=== PATIENT | male | born 1970 | race Caucasian/White ===

== ENCOUNTER → 2018-08-25 08:37 | Outpatient (CLI) | payer BC, SELFPAY ==
[2018-08-25 09:40] LABS: Add Manual Diff / Slide Review NO; Basophils Absolute Auto 100 /uL (0-100); Basophils Percent Auto 1.6 % (0-2); Eosinophils Absolute Auto 300 /uL (0-450); Eosinophils Percent Auto 4.9 % (2-4); Hemoglobin 10.3 g/dL (13.5-17.5); Lymphocytes Absolute Auto 1700 /uL (1100-4500); Lymphocytes Percent Auto 29.1 % (25-40); Mean Corpuscular HGB Conc 30.3 % (30-36); Mean Corpuscular Hemoglobin 19.3 PG (26-34); Mean Corpuscular Volume 63.6 fL (80-100); Monocytes Absolute Auto 800 /uL (0-900); Monocytes Percent Auto 13.1 % (3-14); Neutrophils Absolute Auto 3100 /uL (1500-7000); Neutrophils Percent Auto 51.3 % (50-75); Platelet Count 313 X10^3/uL (150-400); Red Blood Cell Count 5.35 X10^6/uL (4.5-5.9); Red Cell Distribution Width 21.2 % (11.6-14.8); White Blood Cell Count 5.9 X10^3/uL (4.5-11.0)
[2018-08-25 10:01] LABS: Alanine Aminotransferase 80 IU/L (21-72); Albumin 4.7 g/dL (3.5-5.0); Albumin Globulin Ratio 1.5 (1.0-2.8); Alkaline Phosphatase 76 U/L (38-126); Aspartate Aminotransferase 79 IU/L (17-59); BUN Creatinine Ratio 12.5 (6-22); Bilirubin Total 0.5 mg/dL (0.2-1.3); Blood Urea Nitrogen 10 mg/dL (9-20); Calcium 9.2 mg/dL (8.4-10.2); Carbon Dioxide 23 mmol/L (22-32); Chloride 102 mmol/L (98-107); Cholesterol 236 mg/dL (140-199); Estimated Glomerular Filt Rate > 60.0 mL/min (>60); Globulin 3.1 g/dL (1.7-4.1); Glucose 102 mg/dL (70-100); HDL Cholesterol 59 mg/dL (40-60); HEMOLYSIS < 15 (0-50); LDL Cholesterol Calculated 159 mg/dL (<100); Potassium 4.1 mmol/L (3.4-5.1); Sodium 138 mmol/L (137-145); Total Protein 7.8 g/dL (6.3-8.2); Triglycerides 88 mg/dL (35-150); Uric Acid 7.7 mg/dL (3.5-8.5)
[2018-08-25 10:25] LABS: Ferritin 7.1 ng/mL (17.9-464)
[2018-08-25 10:39] LABS: HEMOLYSIS < 15 (0-50); Iron 22 ug/dL (49-181)
[2018-08-25 10:50] LABS: Percent Iron Saturation 4 % (20-50); Total Iron Binding Capacity 595 ug/dL (261-462); Transferrin 454 mg/dL (206-381)
[2018-08-25 10:52] LABS: Hypochromasia 3+
[2018-08-25 10:53] LABS: Anisocytosis 3+; Microcytosis 3+; Stomatocytes 1+
== END ==
PROVIDERS: PCP Physician Assistant; Visit Provider Physician Assistant
DX: Z00.00 Encounter for general adult medical examination without abnormal findings (principal); E78.5 Hyperlipidemia, unspecified; M25.50 Pain in unspecified joint; K21.9 Gastro-esophageal reflux disease without esophagitis; Z86.2 Personal history of diseases of the blood and blood-forming organs and certain disorders involving the immune mechanism; Z87.19 Personal history of other diseases of the digestive system
CPT/HCPCS: 36415; 80053; 80061; 82728; 83540; 83550; 84550; 85025

== ENCOUNTER → 2018-11-27 10:42 | Outpatient (CLI) | payer OTHER, SELFPAY ==
--- NOTE | 2018-11-27 | DI.US.S_ITS ---
PROCEDURE: US PERIPH VENOUS UP EXTREM LT INDICATIONS: LEFT UPPER EXTREMITY PAIN TECHNIQUE: Real-time imaging, as well as color and pulse Doppler interrogation, was performed of the left upper extremity deep veins from the inferior neck to the antecubital fossa. COMPARISON: None. FINDINGS: The internal jugular vein, visualized portions of the subclavian vein, axillary, and brachial veins are free of intraluminal thrombus. Where physically possible, the veins are normally compressible. Color and pulse Doppler demonstrate normal intraluminal flow, with expected phasicity and pulsatility. Additional scanning of the cephalic and basilic veins of the superficial system demonstrate normal compressibility, without thrombus. IMPRESSION: No deep vein thrombosis of the left upper extremity. Dictated by: Lexis Hobson M.D. on 11/27/2018 at 12:56 Approved by: Lexis Hobson M.D. on 11/27/2018 at 12:57
== END ==
PROVIDERS: Family Provider Physical Medicine & Rehabilitation; PCP Physician Assistant; Visit Provider Physical Medicine & Rehabilitation
DX: M79.602 Pain in left arm (principal)
CPT/HCPCS: 93971

== ENCOUNTER → 2019-01-08 08:43 | Outpatient (CLI) | payer BC, SELFPAY ==
[2019-01-08 09:26] LABS: Add Manual Diff / Slide Review NO; Basophils Absolute Auto 100 /uL (0-100); Basophils Percent Auto 0.9 % (0-2); Eosinophils Absolute Auto 200 /uL (0-450); Eosinophils Percent Auto 2.8 % (2-4); Hemoglobin 14.9 g/dL (13.5-17.5); Lymphocytes Absolute Auto 1400 /uL (1100-4500); Lymphocytes Percent Auto 18.6 % (25-40); Mean Corpuscular Hemoglobin 33.1 PG (26-34); Mean Corpuscular Volume 97.5 fL (80-100); Monocytes Absolute Auto 600 /uL (0-900); Monocytes Percent Auto 7.8 % (3-14); Neutrophils Absolute Auto 5100 /uL (1500-7000); Neutrophils Percent Auto 69.9 % (50-75); Platelet Count 236 X10^3/uL (150-400); Red Blood Cell Count 4.51 X10^6/uL (4.5-5.9); Red Cell Distribution Width 15.3 % (11.6-14.8); White Blood Cell Count 7.3 X10^3/uL (4.5-11.0)
[2019-01-08 09:42] LABS: Alanine Aminotransferase 68 IU/L (21-72); Aspartate Aminotransferase 62 IU/L (17-59); Cholesterol 275 mg/dL (140-199); HDL Cholesterol 82 mg/dL (40-60); LDL Cholesterol Calculated 174 mg/dL (<100); Triglycerides 95 mg/dL (35-150)
[2019-01-08 09:52] LABS: HEMOLYSIS < 15 (0-50); Iron 82 ug/dL (49-181)
[2019-01-08 10:03] LABS: Percent Iron Saturation 20 % (20-50); Total Iron Binding Capacity 408 ug/dL (261-462); Transferrin 348 mg/dL (206-381)
[2019-01-08 10:18] LABS: Ferritin 43.6 ng/mL (17.9-464)
== END ==
PROVIDERS: PCP Physician Assistant; Visit Provider Physician Assistant
DX: D50.9 Iron deficiency anemia, unspecified (principal); E78.5 Hyperlipidemia, unspecified; R74.8 Abnormal levels of other serum enzymes
CPT/HCPCS: 36415; 80061; 82728; 83540; 83550; 84450; 84460; 85025

== ENCOUNTER → 2019-12-23 08:41 | Outpatient (CLI) | payer BC, SELFPAY ==
[2019-12-23 10:21] LABS: Hematocrit 31.6 % (41-53); Hemoglobin 9.5 g/dL (13.5-17.5); Mean Corpuscular Volume 66.7 fL (80-100); Platelet Count 234 X10^3/uL (150-400); Red Blood Cell Count 4.74 X10^6/uL (4.5-5.9); Red Cell Distribution Width 19.1 % (11.6-14.8); White Blood Cell Count 7.6 X10^3/uL (4.5-11.0)
[2019-12-23 10:38] LABS: Neutrophils Absolute Manual 5092 /uL (3000-5900); Total Cells Counted 100
[2019-12-23 10:39] LABS: Anisocytosis 2+
[2019-12-23 10:46] LABS: HEMOLYSIS < 15 (0-50); Iron 31 ug/dL (49-181)
[2019-12-23 10:49] LABS: Alanine Aminotransferase 120 IU/L (<50); Albumin 4.8 g/dL (3.5-5.0); Albumin Globulin Ratio 1.6 (1.0-2.8); Alkaline Phosphatase 86 U/L (38-126); Aspartate Aminotransferase 169 IU/L (17-59); BUN Creatinine Ratio 16.4 (6-22); Bilirubin Total 0.9 mg/dL (0.2-1.3); Blood Urea Nitrogen 12 mg/dL (9-20); Calcium 9.7 mg/dL (8.4-10.2); Carbon Dioxide 23 mmol/L (22-32); Chloride 105 mmol/L (98-107); Cholesterol 236 mg/dL (140-199); Estimated Glomerular Filt Rate > 60.0 mL/min (>60); Glucose 101 mg/dL (70-100); HDL Cholesterol 61 mg/dL (40-60); HEMOLYSIS 17 (0-50); LDL Cholesterol Calculated 157 mg/dL (<100); Potassium 4.5 mmol/L (3.4-5.1); Sodium 138 mmol/L (137-145); Total Protein 7.8 g/dL (6.3-8.2); Triglycerides 90 mg/dL (35-150)
[2019-12-23 10:58] LABS: Percent Iron Saturation 6 % (20-50); Total Iron Binding Capacity 504 ug/dL (261-462); Transferrin 476 mg/dL (206-381)
[2019-12-23 11:18] LABS: TSH w/ Reflex to FT4 1.24 uIU/mL (0.47-4.68)
== END ==
PROVIDERS: PCP Registered Nurse Diabetes Educator; Referring Provider Registered Nurse Diabetes Educator; Visit Provider Registered Nurse Diabetes Educator
DX: Z00.00 Encounter for general adult medical examination without abnormal findings (principal); D50.9 Iron deficiency anemia, unspecified; E66.9 Obesity, unspecified; E78.5 Hyperlipidemia, unspecified; R73.01 Impaired fasting glucose
CPT/HCPCS: 36415; 80053; 80061; 83540; 83550; 84443; 85025

== ENCOUNTER → 2019-12-30 07:34 | Outpatient (CLI) | payer BC, SELFPAY ==
--- NOTE | 2019-12-30 07:36 | DI.US.S_ITS ---
PROCEDURE: US ABDOMEN LIMITED INDICATIONS: ELEVATED LIVER ENZYMES TECHNIQUE: Real-time focused scanning was performed of the abdomen, with image documentation. COMPARISON: [facility], US, ABDOMEN LIMITED, 11/24/2014, 9:07. FINDINGS: The liver measures 19.6 cm craniocaudad, and demonstrates mild elevated echotexture consistent with fatty infiltration. Note is made of abnormal gallbladder wall thickening up to 8 mm, but without visualized stone or distention. There is tenderness during sonographic palpation. Common duct caliber is 5.9 mm. IMPRESSION: Mild fatty infiltration within the liver, the liver appears enlarged at almost 20 cm craniocaudad. No ascites found, no varices seen. Abnormal gallbladder wall thickening up to 8 mm, with sonographic Emery sign during palpation of the gallbladder with the transducer probe. Bile ducts currently are not seen to be distended immediately adjacent. The absence of visualized calculus does not entirely exclude the possibility of acute cholecystitis. Depending on the clinical status follow-up by nuclear medicine hepatobiliary scan may be warranted to assess for patency of the cystic duct and gallbladder function. Alternatively, surgical consultation may be warranted at this time. Dictated by: Pacheco Griffin M.D. on 12/30/2019 at 9:17 Approved by: Pacheco Griffin M.D. on 12/30/2019 at 9:21
[2019-12-30 08:34] LABS: Add Manual Diff / Slide Review NO; Basophils Absolute Auto 200 /uL (0-100); Basophils Percent Auto 2.8 % (0-2); Eosinophils Absolute Auto 300 /uL (0-450); Eosinophils Percent Auto 3.8 % (2-4); Hematocrit 30.4 % (41-53); Lymphocytes Absolute Auto 1800 /uL (1100-4500); Lymphocytes Percent Auto 27.5 % (25-40); Mean Corpuscular HGB Conc 29.6 % (30-36); Mean Corpuscular Hemoglobin 19.7 PG (26-34); Mean Corpuscular Volume 66.6 fL (80-100); Monocytes Absolute Auto 800 /uL (0-900); Monocytes Percent Auto 11.6 % (3-14); Neutrophils Absolute Auto 3600 /uL (1500-7000); Neutrophils Percent Auto 54.3 % (50-75); Platelet Count 277 X10^3/uL (150-400); Red Blood Cell Count 4.57 X10^6/uL (4.5-5.9); Red Cell Distribution Width 20.5 % (11.6-14.8); White Blood Cell Count 6.6 X10^3/uL (4.5-11.0)
[2019-12-30 08:42] LABS: HEMOLYSIS < 15 (0-50); Iron 26 ug/dL (49-181)
[2019-12-30 08:46] LABS: Cholesterol 224 mg/dL (140-199); HDL Cholesterol 52 mg/dL (40-60); LDL Cholesterol Calculated 155 mg/dL (<100); Triglycerides 84 mg/dL (35-150)
[2019-12-30 08:48] LABS: Hemoglobin A1C% w Est Avg Glu 5.3 % (4.0-6.0)
[2019-12-30 08:51] LABS: Anisocytosis 2+
[2019-12-30 08:54] LABS: Percent Iron Saturation 5 % (20-50); Total Iron Binding Capacity 520 ug/dL (261-462); Transferrin 470 mg/dL (206-381)
[2019-12-30 09:17] LABS: Ferritin 10 ng/mL (18-464)
[2019-12-30 15:18] LABS: Hepatitis B Surface Antigen NEGATIVE s/c (NEGATIVE)
[2019-12-30 15:46] LABS: Hep C Virus Ab w/Reflex Quant NEGATIVE s/c (NEGATIVE)
[2019-12-31 03:36] LABS: Hepatitis A Antibody Total Negative (Negative)
[2019-12-31 04:36] LABS: Hepatitis B Core AB w/Reflex Negative (Negative); Hepatitis B Surf Ab Qualitativ Non Reactive (.)
[2020-01-01 10:45] LABS: Fecal Immunochemical Test Negative (Negative)
== END ==
PROVIDERS: PCP Registered Nurse Diabetes Educator; Referring Provider Registered Nurse Diabetes Educator; Visit Provider Registered Nurse Diabetes Educator
DX: R74.8 Abnormal levels of other serum enzymes (principal); K76.0 Fatty (change of) liver, not elsewhere classified; D50.9 Iron deficiency anemia, unspecified; E66.9 Obesity, unspecified; E78.5 Hyperlipidemia, unspecified; R73.01 Impaired fasting glucose
CPT/HCPCS: 36415; 76705; 80061; 82270; 82274; 82728; 83036; 83540; 83550; 85025; 86704; 86706; 86708; 86803; 87340

== ENCOUNTER → 2021-03-26 08:42 | Outpatient (CLI) | payer BC, SELFPAY ==
[2021-03-26 09:49] LABS: Add Manual Diff / Slide Review NO; Basophils Absolute Auto 0 /uL (0-100); Eosinophils Absolute Auto 200 /uL (0-450); Eosinophils Percent Auto 4.1 % (2-4); Lymphocytes Absolute Auto 1400 /uL (1100-4500); Lymphocytes Percent Auto 28.6 % (25-40); Mean Corpuscular Hemoglobin 33.2 PG (26-34); Mean Corpuscular Volume 97.5 fL (80-100); Monocytes Absolute Auto 500 /uL (0-900); Monocytes Percent Auto 11.1 % (3-14); Neutrophils Absolute Auto 2700 /uL (1500-7000); Neutrophils Percent Auto 55.2 % (50-75); Platelet Count 231 X10^3/uL (150-400); Red Blood Cell Count 4.52 X10^6/uL (4.5-5.9); Red Cell Distribution Width 13.4 % (11.6-14.8); White Blood Cell Count 4.9 X10^3/uL (4.5-11.0)
[2021-03-26 10:05] LABS: HEMOLYSIS < 15 (0-50); Iron 71 ug/dL (49-181)
[2021-03-26 10:06] LABS: Alanine Aminotransferase 92 IU/L (<50); Albumin 4.6 g/dL (3.5-5.0); Albumin Globulin Ratio 1.7 (1.0-2.8); Alkaline Phosphatase 79 U/L (38-126); Aspartate Aminotransferase 115 IU/L (17-59); BUN Creatinine Ratio 12.2 (6-22); Bilirubin Total 0.5 mg/dL (0.2-1.3); Blood Urea Nitrogen 9 mg/dL (9-20); Calcium 9.6 mg/dL (8.4-10.2); Carbon Dioxide 26 mmol/L (22-32); Chloride 105 mmol/L (98-107); Cholesterol 266 mg/dL (140-199); Estimated Glomerular Filt Rate > 60.0 mL/min (>60); Globulin 2.7 g/dL (1.7-4.1); Glucose 95 mg/dL (70-100); HDL Cholesterol 81 mg/dL (40-60); HEMOLYSIS < 15 (0-50); LDL Cholesterol Calculated 156 mg/dL (<100); Potassium 4.7 mmol/L (3.4-5.1); Sodium 141 mmol/L (137-145); Total Protein 7.3 g/dL (6.3-8.2); Triglycerides 143 mg/dL (35-150)
[2021-03-26 10:19] LABS: Percent Iron Saturation 18 % (20-50); Total Iron Binding Capacity 400 ug/dL (261-462); Transferrin 341 mg/dL (206-381)
[2021-03-26 10:41] LABS: Ferritin 117 ng/mL (18-464); TSH w/ Reflex to FT4 1.07 uIU/mL (0.47-4.68)
[2021-03-26 11:13] LABS: Folate 16.9 ng/mL (2.76-20.0); Vitamin B12 Reflex MMA if <400 242 pg/mL (239-931)
[2021-03-31 07:11] LABS: Methylmalonic Acid,Serum 226 nmol/L (0-378)
== END ==
PROVIDERS: PCP Registered Nurse Diabetes Educator; Referring Provider Registered Nurse Diabetes Educator; Visit Provider Registered Nurse Diabetes Educator
DX: E78.5 Hyperlipidemia, unspecified (principal); D50.9 Iron deficiency anemia, unspecified; R16.0 Hepatomegaly, not elsewhere classified; R74.8 Abnormal levels of other serum enzymes; Z72.89 Other problems related to lifestyle
CPT/HCPCS: 36415; 80053; 80061; 82607; 82728; 82746; 83540; 83550; 83921; 84443; 85025

== ENCOUNTER → 2021-10-04 09:13 | Outpatient (CLI) | payer BC, SELFPAY ==
[2021-10-04 12:12] LABS: COVID19 -Nasal RAPID Negative (Negative)
== END ==
PROVIDERS: PCP Registered Nurse Diabetes Educator; Visit Provider Surgery
DX: Z20.822 Contact with and (suspected) exposure to COVID-19 (principal); Z01.812 Encounter for preprocedural laboratory examination
CPT/HCPCS: 87635; C9803

== ENCOUNTER 2021-10-05 07:29 | Day surgery (SDC) | payer BC, SELFPAY ==
[2021-10-05 08:00] VITALS: BP 151/109; PULSE 80; RESP 16; TEMP 36.1; O2SAT 98; BMI 34.0
[2021-10-05] MEDS: LACTATED RINGERS 1,000 ML 200 ML IV (08:11)
--- NOTE | 2021-10-05 08:32 | PM.HP.1 ---
History of Present Illness History of Present Illness Date Patient Seen: 10/05/21 Time Patient Seen: 08:32 Chief complaint: SDC Narrative: The patient presents for colorectal screening. He had previous colonoscopy 5 years ago that demonstrated benign polyps. No personal or family history of colon cancer. He does have occasional blood per rectum attributed to hemorrhoid disease. Mild nausea today secondary to bowel prep otherwise no significant gastrointestinal symptoms. Patient History Medical History Alcohol intake above recommended sensible limits with complication Chronic neck pain Depression Elevated liver enzymes Fatty (change of) liver, not elsewhere classified Hearing loss Hepatomegaly Impaired fasting glucose Low vitamin B12 level Marijuana use Neck problem Shoulder pain Sleep apnea Thickening of wall of gallbladder Tinnitus Vision disorder Surgical History Anesthesia History of hernia surgery History of surgery Hx of appendectomy Hx of shoulder surgery Umbilical hernia Family & Social History Family History Grandfather Cancer Grandmother Lung cancer Diabetes mellitus Social History: household members spouse,family Tobacco & Substance use: Smoking Status Former smoker alcohol intake current alcohol intake frequency 3 or more drinks per day Substance Use Type marijuana Meds Home Medications and Allergies Home Medications Medication Instructions Recorded Confirmed Type ferrous sulfate 324 mg (65 mg 324 mg PO BID #180 tab 12/26/19 10/05/21 Rx iron) tablet,delayed release omeprazole 20 mg capsule,delayed 20 mg PO QDAY #90 cap 03/29/21 10/05/21 Rx release Allergies Allergy/AdvReac Type Severity Reaction Status Date / Time baclofen [BACLOFEN] AdvReac Mild Mood Verified 10/05/21 07:47 change, SKIN CRAWLS gabapentin [GABAPENTIN] AdvReac Mild Mood Verified 10/05/21 07:47 change, SKIN CRAWLS Exam Vital Signs (past 8 hours): - 10/05/21 08:00 Temperature 97 F L Pulse Rate 80 Respiratory Rate 16 Blood Pressure 151/109 H Pulse Oximetry 98 Oxygen Delivery Method Room Air Narrative Exam Narrative: GENERAL: Obese male in no apparent distress HEENT: No scleral icterus CV: Regular rate, no peripheral edema LUNGS: No increased work of breathing. Patient speaks in full sentences without oxygen support. ABDOMEN: Soft, non-tender, non-distended NEURO: Nonfocal, normal strength throughout, normal gait. SKIN: Warm and dry Assessment & Plan Assessment & Plan narrative: The patient requires colorectal screening and colonoscopy is recommended. Technical details were discussed. Risks, benefits, alternatives explained. Risks including but not limited to myocardial infarction, aspiration, bleeding, pain, missed lesion, incomplete examination, need for further radiographic studies, colonic perforation, and need for major abdominal surgery were discussed. All questions were answered to their satisfaction, and they are in agreement with this plan. Time Spent With Patient Critical Care time: I spent a total of [] minutes of critical care time on this patient's care today; this time is exclusive of procedural time.
[2021-10-05] MEDS: ONDANSETRON 4 MG/2 ML INJ IV (08:39)
[2021-10-05] MEDS: fentaNYL 250 MCG/5 ML INJ IV (08:40)
[2021-10-05] MEDS: MIDAZOLAM 5 MG/5 ML VIAL IV (08:40)
--- NOTE | 2021-10-05 09:03 | PM.OP.COLON ---
Operative Date/Time/Diagnoses Date of procedure: 10/05/21 Time of procedure: 09:03 Pre-op diagnosis: Personal history of colonic polyps Post-op diagnosis: same Procedure & Clinicians Study performed: Colonoscopy Same procedure as scheduled: Yes Indications: Personal history of colonic polyps Surgeon: Black Jason Procedure Notes Procedure in detail: Medications: Conscious sedation using 10 mg IV midazolam and 250 mcg IV of fentanyl The history and physical was performed/updated and the patient is ASA class is 2. The procedure was discussed in detail with the patient. Potential risks complications including infection, bleeding, missed diagnosis, perforation, need for surgery, and were explained. Their questions were answered and informed consent was obtained. Patient was brought to the procedure room and placed standard monitoring equipment. The patient's vital signs were monitored continuously throughout the entire procedure. Prior to starting time-out was performed. The patient was placed in the left lateral recumbent position. Procedural sedation was administered. Examination began with a thorough inspection of the perianal area there was no evidence of fissures, fistulae, external hemorrhoids or cutaneous malignancy. The colonoscopy scope was then placed into the anal canal and was advanced to the cecum, which was identified by the ileocecal valve, the appendiceal orifice and the confluence of the taenia. The scope was then slowly withdrawn examining colon thoroughly in all directions, irrigating it of any residual stool. FINDINGS 1. No masses or polyps 2. Normal healthy colon 3. Internal hemorrhoids The patient tolerated the procedure well. They will be discharged once criteria are met. The prep was of good/excellent quality. The withdrawl time was 6 minutes. The sedation time was 20 minutes. Specimen(s): none sent Complications: none Impression: Normal colonoscopy Post-procedure Recommendations: Colonoscopy in 10 years Disposition: same day surgery
[2021-10-05 09:05] VITALS: BP 148/87; PULSE 80; RESP 15; TEMP 36.8; O2SAT 97
[2021-10-05 09:10] VITALS: BP 134/81; PULSE 86; RESP 16; O2SAT 99
[2021-10-05 09:15] VITALS: BP 136/82; PULSE 78; RESP 15; O2SAT 96
[2021-10-05 09:20] VITALS: BP 137/97; PULSE 80; RESP 15; O2SAT 99
[2021-10-05 09:21] VITALS: BP 137/82; PULSE 82; RESP 15; O2SAT 98
== END 2021-10-05 09:31 | disposition home or self-care (01) ==
PROVIDERS: PCP Registered Nurse Diabetes Educator; Referring Provider Surgery; Visit Provider Surgery
PROC: 0DJD8ZZ Inspection of Lower Intestinal Tract, Via Natural or Artificial Opening Endoscopic (ICD-10-PCS; CPT 45378; principal; 2021-10-05 08:30)
DX: Z12.11 Encounter for screening for malignant neoplasm of colon (principal); Z86.010 Personal history of colon polyps; K64.8 Other hemorrhoids
CPT/HCPCS: 45378; 99152; J2250; J2405; J3010

== ENCOUNTER → 2025-02-14 07:30 | Outpatient (CLI) | payer BC, SELFPAY ==
[2025-02-14 08:27] LABS: Hematocrit 38.3 % (41-53); Hemoglobin 11.8 g/dL (13.5-17.5); Mean Corpuscular HGB Conc 30.7 % (30-36); Mean Corpuscular Hemoglobin 20.4 PG (26-34); Mean Corpuscular Volume 66.3 fL (80-100); Platelet Count 269 X10^3/uL (150-400)
[2025-02-14 08:35] LABS: Hemoglobin A1C% w Est Avg Glu 5.3 % (4.0-6.0)
[2025-02-14 08:43] LABS: Alanine Aminotransferase 62 IU/L (<50); Albumin 4.8 g/dL (3.5-5.0); Albumin Globulin Ratio 1.5 (1.0-2.8); Alkaline Phosphatase 87 U/L (38-126); Blood Urea Nitrogen 8 mg/dL (9-20); Calcium 9.2 mg/dL (8.4-10.2); Carbon Dioxide 22 mmol/L (22-32); Chloride 105 mmol/L (98-107); Cholesterol 236 mg/dL (140-199); Estimated Glomerular Filt Rate > 60 mL/min (>60); Globulin 3.1 g/dL (1.7-4.1); Glucose 111 mg/dL (70-99); HDL Cholesterol 78 mg/dL (40-60); HEMOLYSIS 18 (0-50); Potassium 4.4 mmol/L (3.4-5.1); Sodium 138 mmol/L (137-145); Total Protein 7.9 g/dL (6.3-8.2); Triglycerides 63 mg/dL (35-150)
[2025-02-14 09:14] LABS: TSH w/ Reflex to FT4 0.83 uIU/mL (0.47-4.68)
== END ==
PROVIDERS: PCP Registered Nurse Diabetes Educator; Referring Provider Registered Nurse Diabetes Educator; Visit Provider Registered Nurse Diabetes Educator
DX: E78.5 Hyperlipidemia, unspecified (principal); R74.8 Abnormal levels of other serum enzymes; R73.01 Impaired fasting glucose
CPT/HCPCS: 36415; 80053; 80061; 83036; 84443; 85027